=== PATIENT | male | born 1995 | race Two or more races ===

== ENCOUNTER 2017-03-21 04:19 | Emergency (ER) | payer OTHER ==
[~2017-03-21] VITALS: Ht 180.3 cm; Wt 113.4 kg
--- NOTE | 2017-03-21 05:11 | PHYS DOC ---
Adult General Chief Complaint Chief Complaint: LOWER BACK PAIN OR INJURY HPI HPI Patient is a 21 year old -[place] male who presents with hip and knee pain. He states he had similar symptoms about 3 months ago in his car parked a muscle spasm. He states this started last night is been getting worse. He states it really hurts behind his knee and into his calf and then somewhat in his thigh. He denies any injury. He denies any shortness of breath fevers chills nausea or vomiting. He denies any back pain, he denies any weakness in his leg or numbness. Review of Systems Review of Systems Constitutional: Denies fever or chills [] Eyes: Denies change in visual acuity, redness, or eye pain [] HENT: Denies nasal congestion or sore throat [] Respiratory: Denies cough or shortness of breath [] Cardiovascular: No additional information not addressed in HPI [] GI: Denies abdominal pain, nausea, vomiting, bloody stools or diarrhea [] : Denies dysuria or hematuria [] Musculoskeletal: Positive for pain behind his right knee Integument: Denies rash or skin lesions [] Neurologic: Denies headache, focal weakness or sensory changes [] Endocrine: Denies polyuria or polydipsia [] All other systems were reviewed and found to be within normal limits, except as documented in this note. Allergies Allergies Allergies Coded Allergies Type Severity Reaction Last Updated Verified No Known Drug Allergies 03/21/17 No Physical Exam Physical Exam Constitutional: Well developed, well nourished, no acute distress, non-toxic appearance. [] HENT: Normocephalic, atraumatic, bilateral external ears normal, oropharynx moist, no oral exudates, nose normal. [] Eyes: PERRLA, EOMI, conjunctiva normal, no discharge. [] Neck: Normal range of motion, no tenderness, supple, no stridor. [] Cardiovascular:Heart rate regular rhythm, no murmur [] Lungs & Thorax: Bilateral breath sounds clear to auscultation [] Abdomen: Bowel sounds normal, soft, no tenderness, no masses, no pulsatile masses. [] Skin: Warm, dry, no erythema, no rash. [] Back: No tenderness, no CVA tenderness. [] Extremities: Tenderness behind the right knee, no masses appreciated, dorsal pedis pulse 2+, unable to fully extend knee secondary to pain behind posterior any, no cyanosis, no clubbing, ROM intact, no edema. [] Neurologic: Alert and oriented X 3, normal motor function, normal sensory function, no focal deficits noted. [] Psychologic: Affect normal, judgement normal, mood normal. [] Current Patient Data Vital Signs Vital Signs Date Time Temp Pulse Resp B/P (MAP) Pulse Ox O2 Delivery O2 Flow Rate FiO2 03/21/17 05:14 98.0 82 18 96 Room Air 98.0 EKG EKG [] Radiology/Procedures Radiology/Procedures [] Impressions: Right lower extremity pain Course & Med Decision Making Course & Med Decision Making Pertinent Labs and Imaging studies reviewed. (See chart for details) Pains are likely could be sciatica, it could also be popliteal Sinclair's cyst or DVT. We will obtain ultrasound of right lower extremity further evaluation. Patient being checked out to Dr. Pederson for final disposition. Dragon Disclaimer Dragon Disclaimer This electronic medical record was generated, in whole or in part, using a voice recognition dictation system. Departure Departure Referrals: NO PCP (PCP) LORIN LAWS MD Mar 21, 2017 05:11
[2017-03-21 05:14] VITALS: BP 156/86
--- NOTE | 2017-03-21 06:26 | RAD ---
INDICATION: Right knee pain COMPARISON: None. TECHNIQUE: Grayscale, color and doppler ultrasound images were obtained of the right lower extremity venous vasculature. RIGHT: No thrombus identified in the common femoral vein, femoral vein, popliteal vein or visualized calf veins. IMPRESSION: 1. No thrombus identified in deep venous system of right lower extremity. Electronically signed by: Bonifacio Rocha MD (03/21/2017 6:22 AM) [id number]
[2017-03-21] MEDS ORDERED: CYCL10TA2 PO (06:31)
== END 2017-03-21 06:45 | disposition home or self-care (01) ==
LOC: ER 04:19
DX: M25.561 Pain in right knee (principal); M25.551 Pain in right hip; M54.5 Low back pain
CPT/HCPCS: 93971; 99284-25